=== PATIENT | male | born 2000 | race Two or more races ===

== ENCOUNTER 2023-05-07 12:25 | Emergency (ER) | payer MEDICAID, OTHER ==
[~2023-05-07] VITALS: Ht 170.2 cm; Wt 106.2 kg
[2023-05-07 13:47] VITALS: BP 141/81; PULSE 123; RESP 16; TEMP 99; O2SAT 97
[2023-05-07] MEDS ORDERED: CEPH500T PO (14:55)
[2023-05-07] MEDS ORDERED: MUPI2CRE17 EX (14:55)
[2023-05-07] MEDS ORDERED: TRIA0.1O EX (14:55)
== END 2023-05-07 15:04 | disposition home or self-care (01) ==
LOC: ER 12:25
DX: B09 Unspecified viral infection characterized by skin and mucous membrane lesions (principal); Z79.899 Other long term (current) drug therapy